=== PATIENT | male | born 1985 | race Caucasian/White ===

== ENCOUNTER 2016-11-15 12:16 | Outpatient (CLI) ==
[2012-08-07 11:51] VITALS: TEMP 98.2
[2014-02-14 23:37] VITALS: BMI 30.9
[2016-11-15 16:24] LABS: BASOPHILS # (AUTO) 0.1 K/uL (0-0.2); BASOPHILS % (AUTO) 0.8 % (0.0-3.0); EOSINOPHILS # (AUTO) 0.1 K/ul (0.0-0.7); EOSINOPHILS % (AUTO) 2.2 % (0.0-7.0); HEMATOCRIT 47.1 % (42.0-52.0); HEMOGLOBIN 15.8 g/dl (14.0-18.0); IMMATURE GRANULOCYTE % (AUTO) 0.5 % (0.0-5.0); LYMPHOCYTES % (AUTO) 16.1 (10.0-50.0); MEAN CORPUSCULAR HEMOGLOBIN 30.7 pg (27.0-31.0); MEAN CORPUSCULAR HGB CONC 33.5 (31.8-35.4); MEAN CORPUSCULAR VOLUME 91.5 fl (80.0-94.0); MONOCYTES # (AUTO) 0.5 K/uL (0.4-2.0); MONOCYTES % (AUTO) 8.1 (0-10); NEUTROPHILS # (AUTO) 4.6 K/ul (2.0-6.9); NEUTROPHILS % (AUTO) 72.3; PLATELET COUNT 322 10^3/uL (140-440); RED BLOOD COUNT 5.15 10^6/ul (4.70-6.10); WHITE BLOOD COUNT 6.29 K/ul (4.2-10.2)
[2016-11-15 17:00] LABS: ALBUMIN 3.7 g/dL (3.4-5.0); ALBUMIN/GLOBULIN RATIO 1.03; ANION GAP 13.3; BILIRUBIN,TOTAL 0.49 mg/dL (0.00-1.20); BUN/CREATININE RATIO 20.25; CALCIUM 9.6 mg/dL (8.2-10.2); CHOL/HDL RATIO 7.3 (4.5-6.4); CREATININE 0.79 mg/dL (0.60-1.10); POTASSIUM 4.3 mmol/L (3.5-5.1); TOTAL PROTEIN 7.3 g/dL (6.4-8.2)
== END 2016-11-15 12:17 | disposition home or self-care (01) ==
LOC: LAB 12:16
PROVIDERS: ATTEND Nurse Practitioner Family
DX: Z00.00 Encounter for general adult medical examination without abnormal findings (principal); F41.8 Other specified anxiety disorders; J45.909 Unspecified asthma, uncomplicated; Z72.0 Tobacco use
CPT/HCPCS: 36415; 80053; 80061; 84443; 85025

== ENCOUNTER 2017-01-21 12:39 | Outpatient (CLI) ==
[2012-08-07 11:51] VITALS: TEMP 98.2
[2014-02-14 23:37] VITALS: BMI 30.9
[2017-01-21 13:10] LABS: ALBUMIN 3.8 g/dL (3.4-5.0); ALBUMIN/GLOBULIN RATIO 1.06; ANION GAP 13.3; BILIRUBIN,TOTAL 0.42 mg/dL (0.00-1.20); BUN/CREATININE RATIO 16.09; CALCIUM 10.2 mg/dL (8.2-10.2); CHOL/HDL RATIO 6.5 (4.5-6.4); CREATININE 0.87 mg/dL (0.60-1.10); POTASSIUM 4.3 mmol/L (3.5-5.1); TOTAL PROTEIN 7.4 g/dL (6.4-8.2)
== END 2017-01-21 12:40 | disposition home or self-care (01) ==
LOC: LAB 12:39
PROVIDERS: ATTEND Nurse Practitioner Family
DX: E78.5 Hyperlipidemia, unspecified (principal); E78.1 Pure hyperglyceridemia
CPT/HCPCS: 36415; 80053; 80061

== ENCOUNTER 2017-08-12 07:55 | Outpatient (CLI) ==
[2012-08-07 11:51] VITALS: TEMP 98.2
[2014-02-14 23:37] VITALS: BMI 30.9
== END 2017-08-12 07:56 | disposition home or self-care (01) ==
LOC: CAR 07:55
PROVIDERS: ATTEND Physician Assistant
DX: R00.2 Palpitations (principal)
CPT/HCPCS: 93005; 93010

== ENCOUNTER 2017-08-21 12:18 | Outpatient (CLI) ==
[2012-08-07 11:51] VITALS: TEMP 98.2
[2014-02-14 23:37] VITALS: BMI 30.9
--- NOTE | 2017-08-21 13:53 | US ---
EXAM: Thyroid ultrasound History: Dysphagia. Comparison: CT soft tissue neck 02/20/2014 Technique: Multiple sonographic images through the thyroid gland were obtained. Color duplex Dopple r was used to interrogate vascular flow. The right lobe of the thyroid measures 4.5 cm x 2.1 cm x 1.8 cm demonstrates a 1.1 cm solid nodule wi th possible microcalcifications. Additional 1.4 cm solid nodule within the right thyroid lobe with i rregular margins. The thyroid isthmus measures 0.5 cm in thickness. The left lobe of the thyroid measures 4.0 cm x 1.9 cm and 1.6 cm demonstrates a 1.2 cm solid nodule w ithin the mid pole. Thyroid gland is slightly hypervascular. Impression: 1. Solid bilateral thyroid nodules. Tissue sampling should be considered if not recently performed. 2. Hypervascular thyroid gland. Correlate for thyroiditis.
== END 2017-08-21 12:19 | disposition home or self-care (01) ==
LOC: RAD 12:18
PROVIDERS: ATTEND Physician Assistant
DX: R13.10 Dysphagia, unspecified (principal)